=== PATIENT | female | born 1980 | race Caucasian/White ===

== ENCOUNTER → 2017-03-24 | Outpatient (CLI) | payer OTHER | LOC: RAD 09:19 | DX: J34.89 Other specified disorders of nose and nasal sinuses (principal) | CPT/HCPCS: 70220 ==

== ENCOUNTER → 2022-01-21 | Outpatient (CLI) | payer OTHER ==
[~2022-01-21] MED LIST: BACTRIM DS TAB1 EACH PO; ONDANSETRON ODT4 MG PO
== END ==
LOC: HEART 5 09:42
DX: R07.9 Chest pain, unspecified (principal); R00.0 Tachycardia, unspecified
CPT/HCPCS: 93306